=== PATIENT | male | born 1980 | race African-American/Black ===

== ENCOUNTER 2018-07-01 16:16 | Emergency (ER) | payer OTHER ==
[2018-07-01] MEDS ORDERED: NORMAL SALINE 1000 ML 1,000 ML IV ONE (16:46)
[2018-07-01 17:04] LABS: ABSOLUTE BASOPHILS # (AUTO) 0.1 10^3/uL (0.0-0.2); ABSOLUTE EOSINOPHILS # (AUTO) 0.6 10^3/uL (0.0-0.6); ABSOLUTE LYMPHOCYTES (AUTO) 4.8 10^3/uL (0.5-4.7); ABSOLUTE MONOCYTES (AUTO) 1.1 10^3/uL (0.1-1.4); ABSOLUTE NEUT (AUTO) 8.8 10^3/uL (1.7-8.2); BASOPHILS % (AUTO) 0.8 % (0-2); EOSINOPHILS % (AUTO) 4.1 % (0-6); HEMATOCRIT 48.3 % (37.9-51.0); HEMOGLOBIN 15.7 g/dL (13.5-17.0); MEAN CORPUSCULAR HEMOGLOBIN 28.2 pg (27.0-33.4); MEAN CORPUSCULAR HGB CONC 32.4 g/dL (32.0-36.0); MEAN CORPUSCULAR VOLUME 87 fl (80-97); MONOCYTES % (AUTO) 7.2 % (3-13); PLATELET COUNT 249 10^3/uL (150-450); RED BLOOD COUNT 5.56 10^6/uL (4.35-5.55); RED CELL DISTRIBUTION WIDTH 13.1 % (11.5-14.0); SEGMENTED NEUTROPHILS % (AUTO) 56.9 % (42-78); TOTAL CELLS COUNTED % (AUTO) 100 %; WHITE BLOOD COUNT 15.4 10^3/uL (4.0-10.5)
--- NOTE | 2018-07-01 17:15 | RADIOLOGY REPORT (SQ) ---
EXAM DESCRIPTION: CHEST 2 VIEWS COMPLETED DATE/TIME: 07/01/2018 5:02 pm REASON FOR STUDY: svt COMPARISON: None. EXAM PARAMETERS: NUMBER OF VIEWS: two views TECHNIQUE: Digital Frontal and Lateral radiographic views of the chest acquired. RADIATION DOSE: NA LIMITATIONS: none FINDINGS: LUNGS AND PLEURA: Mild pulmonary vascular congestion. No pulmonary edema. MEDIASTINUM AND HILAR STRUCTURES: No masses or contour abnormalities. HEART AND VASCULAR STRUCTURES: Heart normal size. No evidence for failure. BONES: No acute findings. HARDWARE: None in the chest. OTHER: No other significant finding. IMPRESSION: Mild pulmonary vascular congestion without pulmonary edema. TECHNICAL DOCUMENTATION: JOB ID: [id number] [id number]- All Rights Reserved Reading location - IP/workstation name: [email or web address]
[2018-07-01 17:20] LABS: ANION GAP 19 (5-19); BLOOD UREA NITROGEN 18 mg/dL (7-20); CALCIUM 10.9 mg/dL (8.4-10.2); CARBON DIOXIDE 27 mmol/L (22-30); CHLORIDE 101 mmol/L (98-107); GLUCOSE 160 mg/dL (75-110); POTASSIUM 4.1 mmol/L (3.6-5.0); SODIUM 147.3 mmol/L (137-145)
--- NOTE | 2018-07-01 18:31 | ER Document Report ---
ED General - General Stated Complaint: RAPID HEART RATE Time Seen by Provider: 07/01/18 16:25 TRAVEL OUTSIDE OF THE [place] IN LAST 30 DAYS: No - HPI Patient complains to provider of: Rapid heart rate Notes: Patient coming in patient states he was at a local urgent care today for checkup when he was found to have possible SVT states his heart rate was apparently the 200. Patient states other history of tachycardia in the past when he was in the now follows at the [facility] told that they want to follow-up with ward assistant child referral was never been made. Patient otherwise states no chest pain no nausea vomiting fever chills no recent travel no diarrhea. Patient resting comfortably upon my evaluation. Patient states recently had a increase in his depression medication but no other medication changes. Patient currently is asymptomatic at this time. Past Medical History - Social History Smoking Status: Unknown if Ever Smoked Family History: Reviewed & Not Pertinent Review of Systems - Review of Systems Constitutional: No symptoms reported EENT: No symptoms reported Cardiovascular: Heart racing Respiratory: No symptoms reported Gastrointestinal: No symptoms reported Genitourinary: No symptoms reported Male Genitourinary: No symptoms reported Musculoskeletal: No symptoms reported Skin: No symptoms reported Hematologic/Lymphatic: No symptoms reported Neurological/Psychological: No symptoms reported -: Yes All other systems reviewed and negative Physical Exam - Vital signs Vitals: Resp BP Pulse Ox 27 H 146/86 H 92 07/01/18 16:56 07/01/18 16:56 07/01/18 16:56 Interpretation: Normal, Tachycardic - General General appearance: Appears well, Alert - HEENT Head: Normocephalic, Atraumatic Eyes: Normal Pupils: PERRL - Respiratory Respiratory status: No respiratory distress Chest status: Nontender Breath sounds: Normal Chest palpation: Normal - Cardiovascular Rhythm: Regular, Tachycardia Heart sounds: Normal auscultation Murmur: No - Abdominal Inspection: Normal Distension: No distension Bowel sounds: Normal Tenderness: Nontender Organomegaly: No organomegaly - Back Back: Normal, Nontender - Extremities General upper extremity: Normal inspection, Nontender, Normal color, Normal ROM , Normal temperature General lower extremity: Normal inspection, Nontender, Normal color, Normal ROM , Normal temperature, Normal weight bearing. No: Bubba's sign - Neurological Neuro grossly intact: Yes Cognition: Normal Orientation: AAOx4 [place] Coma Scale Eye Opening: Spontaneous [place] Coma Scale Verbal: Oriented [place] Coma Scale Motor: Obeys Commands [place] Coma Scale Total: 15 Speech: Normal Motor strength normal: LUE, RUE, LLE, RLE Sensory: Normal - Psychological Associated symptoms: Normal affect, Normal mood - Skin Skin Temperature: Warm Skin Moisture: Dry Skin Color: Normal Course - Re-evaluation Re-evalutation: 07/01/18 23:21 Patient has slight tachycardia while here during his ER visit however no signs of SVT. Laboratory studies not show any signs of cardiac ischemia D dimer was negative. No electrolyte abnormalities except for elevated sodium. More likely this is due to underlying dehydration.. Unclear etiology for the patient 's symptoms at this time however patient has remained astigmatic during his visit here in ER. Recommended patient follow-up with his primary care provider and also recommend follow-up with ward assistant regional recruiter Dr. Shea. Patient states understanding and agrees with plan will be discharged home. 07/01/18 23:22 - Vital Signs Vital signs: Temp Pulse Resp BP Pulse Ox 23 H 143/99 H 93 07/01/18 18:31 07/01/18 18:31 07/01/18 18:31 - Laboratory Result Diagrams: 07/01/18 16:06 07/01/18 16:06 Laboratory results interpreted by me: 07/01/18 07/01/18 16:06 16:06 WBC 15.4 H RBC 5.56 H Absolute Neutrophils 8.8 H Absolute Lymphocytes 4.8 H Sodium 147.3 H Glucose 160 H Calcium 10.9 H Discharge - Discharge Clinical Impression: Tachycardia, Feared complaint without diagnosis, Dehydration Condition: Good Disposition: HOME, SELF-CARE Instructions: Dehydration ([facility]), Sinus Tachycardia ([facility]) Additional Instructions: Your EKG lab work chest x-ray did not show any critical pathology at this time. Do not see any signs the supraventricular tachycardia that was reported by your previous provider. Your heart rates have been between 100-115's while here in the ER. Would recommend he follow primary care providers also follow- up with the ward assistant please make sure you drink plenty of water return to the ER symptoms worsen. Your sodium was slightly elevated which more likely is due to underlying dehydration. Referrals: LEILA SHEA MD [ACTIVE STAFF] - Follow up as needed
[2018-07-01 18:45] VITALS: BP 143/99
--- NOTE | 2018-07-01 21:24 | EKG REPORT ---
SEVERITY:- BORDERLINE ECG - SINUS TACHYCARDIA BORDERLINE T ABNORMALITIES, INFERIOR LEADS : Confirmed by: Katlyn Nowak MD 01-Jul-2018 21:23:43
== END 2018-07-01 19:11 | disposition home or self-care (01) ==
LOC: ER 16:16
DX: R00.0 Tachycardia, unspecified (principal); E86.0 Dehydration; F32.9 Major depressive disorder, single episode, unspecified; Z79.899 Other long term (current) drug therapy
CPT/HCPCS: 71046; 80048; 84484; 85025; 85379; 93005; 93010; 99285

== ENCOUNTER → 2018-10-21 | Outpatient (CLI) | payer OTHER ==
--- NOTE | 2018-10-21 11:30 | RADIOLOGY REPORT (SQ) ---
EXAM DESCRIPTION: FOOT RIGHT COMPLETE COMPLETED DATE/TIME: 10/21/2018 11:13 am REASON FOR STUDY: OSTEOMYELITIS M86.371 CHRONIC MULTIFOCAL OSTEOMYELITIS, RIGHT ANKLE AND FO Chronic ulcer, great toe COMPARISON: None. NUMBER OF VIEWS: Three views. TECHNIQUE: AP, lateral and oblique WEIGHT-BEARING radiographic images acquired of the right foot. LIMITATIONS: None. FINDINGS: MINERALIZATION: Normal. BONES: No acute fracture or dislocation. Small plantar and dorsal calcaneal spurs. JOINTS: Mild bony spurring at the intertarsal and tarsometatarsal joints SOFT TISSUES: No soft tissue swelling. No foreign body. OTHER: No other significant finding. IMPRESSION: No aggressive bony demineralization of the great toe worrisome for osteomyelitis. Small plantar dorsal calcaneal spurs. Mild bony spurring at the intertarsal and tarsometatarsal joints TECHNICAL DOCUMENTATION: JOB ID: [id number] [employer]- All Rights Reserved Reading location - IP/workstation name: [email or web address]
== END ==
LOC: OD 10:49
PROVIDERS: ATTEND Podiatrist Foot & Ankle Surgery
DX: M86.371 Chronic multifocal osteomyelitis, right ankle and foot (principal); M77.31 Calcaneal spur, right foot

== ENCOUNTER → 2018-11-12 | Outpatient (CLI) | payer OTHER ==
--- NOTE | 2018-11-12 10:12 | RADIOLOGY REPORT (SQ) ---
EXAM DESCRIPTION: CT BONE LENGTH COMPLETED DATE/TIME: 11/12/2018 8:47 am REASON FOR STUDY: LLD (Q72.819) Q72.819 CONGENITAL SHORTENING OF UNSPECIFIED LOWER LIMB COMPARISON: None. TECHNIQUE: CT scanogram of the bilateral lower extremities is performed including pelvis to ankles. Measurements of femur, tibia, and entire lower extremities performed by the radiologist and saved to PACS. All CT scanners at this facility use dose modulation, iterative reconstruction, and/or weight based d osing when appropriate to reduce radiation dose to as low as reasonably achievable (ALARA). [facility]: Dose Right [facility]: CareDose [facility]: Dose Right [facility]: Teradose 4D [facility]: [employer] RADIATION DOSE: mGy. LIMITATIONS: None. FINDINGS: RIGHT: FEMUR: 51.4 cm. TIBIA: 43.2 cm. TOTAL RIGHT LOWER EXTREMITY LENGTH: 95.6 cm. LEFT: FEMUR: 51.9 cm. TIBIA: 43.7 cm. TOTAL LEFT LOWER EXTREMITY LENGTH: 96.9 cm. IMPRESSION: LEG LENGTH MEASUREMENTS DETAILED ABOVE. TECHNICAL DOCUMENTATION: JOB ID: [id number] Quality ID # [id number]: Final reports with documentation of one or more dose reduction techniques (e.g., Au tomated exposure control, adjustment of the mA and/or kV according to patient size, use of iterative reconstruction technique) 2010 [employer]- All Rights Reserved Reading location - IP/workstation name: [email or web address]
== END ==
LOC: RAD 08:33 → MERGE 09:30
PROVIDERS: ATTEND Podiatrist Foot & Ankle Surgery
DX: Q72.819 Congenital shortening of unspecified lower limb (principal)
CPT/HCPCS: 77073

== ENCOUNTER 2019-10-16 12:49 | Emergency (ER) | payer OTHER ==
[2019-10-16 13:06] VITALS: BP 164/89
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
== END 2019-10-16 13:38 | disposition home or self-care (01) ==
LOC: ER 12:49
DX: M54.6 Pain in thoracic spine (principal); M54.2 Cervicalgia; M54.5 Low back pain; V89.2XXA Person injured in unspecified motor-vehicle accident, traffic, initial encounter
CPT/HCPCS: 99283